=== PATIENT | male | born 1955 | race Asian ===

== ENCOUNTER 2020-04-18 12:46 | Emergency (ER) | payer OTHER ==
[~2020-04-18] VITALS: Ht 182.9 cm; Wt 63.5 kg
[2020-04-18 13:56] LABS: PLATELET COUNT 200 K/uL (142-355)
[2020-04-18 14:16] LABS: POTASSIUM 4.2 mmol/L (3.6-5.2)
[2020-04-18] MEDS ORDERED: METF500T PO (15:01)
[2020-04-18] MEDS ORDERED: TRILEPTAL300 MG PO (15:02)
[2020-04-18] MEDS ORDERED: B-12100 MCG PO (15:02)
[2020-04-18] MEDS ORDERED: GABA300C2 PO (15:04)
[2020-04-18] MEDS ORDERED: XARELTO20 MG PO (15:05)
[2020-04-18] MEDS ORDERED: FLONASE AL50 MCG/ACT NAS (15:06)
[2020-04-18 16:46] VITALS: BP 134/68; TEMP 100.6
== END 2020-04-18 16:47 | disposition short-term general hospital (02) ==
LOC: ED 12:46
PROVIDERS: Family Medicine
PROC: 0T9B70Z Drainage of Bladder with Drainage Device, Via Natural or Artificial Opening (ICD-10-PCS; principal; 2020-04-18)
DX: R56.9 Unspecified convulsions (principal); R50.9 Fever, unspecified; R41.82 Altered mental status, unspecified; Z03.818 Encounter for observation for suspected exposure to other biological agents ruled out
CPT/HCPCS: 36415; 51702; 80053; 81000; 82550; 82553; 83605; 84484; 85027; 85610; 87040; 87635; 96360; 96365; 96366; 96368; 99284; J0132; J0696; U0003